=== PATIENT | female | born 1975 | race African-American/Black ===

== ENCOUNTER 2017-12-12 18:10 | Inpatient (IN) | payer SELFPAY ==
[~2017-12-12] VITALS: Ht 167.6 cm; Wt 120.2 kg
[~2017-12-12 18:10] MED LIST: ALBU05 INH
[2017-12-12 18:43] LABS: BASOPHILS % 1.4 % (0.0-2.0); EOSINOPHILS % 0.7 % (0.0-5.0); HEMATOCRIT. 41.8 % (36.0-48.0); HEMOGLOBIN. 13.3 g/dL (12.0-16.0); LYMPHOCYTES % 16.1 % (20.0-50.0); MEAN CORPUSCULAR HEMOGLOBIN 23.9 pg (28.0-32.0); MEAN PLATELET VOLUME 7.5 fl (7.4-10.4); MONOCYTES % 7.6 % (2.0-8.0); NEUTROPHILS % 74.2 % (40.0-76.0); PLATELET 311 x1000/uL (130-400); RED BLOOD CELL COUNT 5.58 mill/uL (4.2-5.4); RED CELL DISTRIBUTION WIDTH 16.9 % (11.6-14.6)
[2017-12-12 18:49] LABS: CHLORIDE 106 mEq/L (98-107)
[2017-12-12 19:06] LABS: CLARITY URINE CLOUDY (CLEAR); COLOR URINE YELLOW (YELLOW); KETONES URINE TRACE (NEGATIVE); LEUKOCYTE ESTERASE URINE NEGATIVE (NEGATIVE); NITRITE URINE NEGATIVE (NEGATIVE); OCCULT BLOOD URINE NEGATIVE (NEGATIVE); PROTEIN URINE 1+ (NEGATIVE); SPECIFIC GRAVITY URINE 1.018 (1.005-1.030)
[2017-12-12] MEDS ORDERED: ONDANSETRON HCL 4MG/2ML VIAL IV STA (19:08)
[2017-12-12] MEDS ORDERED: SODIUM CHLORIDE 0.9% 1,000 ML IV ONE (19:08)
[2017-12-12] MEDS ORDERED: FAMOTIDINE 20MG/2ML VIAL IV STA (19:08)
[2017-12-12] MEDS ORDERED: MORPHINE SULFATE 4 MG/ML CPJ (NOT FOR IM USE) IV STA (19:08)
[2017-12-12 19:43] LABS: HCG SCREEN NEGATIVE
[2017-12-12] MEDS ORDERED: IOHEXOL-300 100 ML BOTTLE ONE (22:06)
[2017-12-12] MEDS ORDERED: ONDANSETRON 4MG ODT PO ONE (23:30)
[2017-12-13] MEDS ORDERED: METOCLOPRAMIDE HCL 5MG TABLET PO ONE (00:15)
[2017-12-13] MEDS ORDERED: SODIUM CHLORIDE 0.9% 1,000 ML IV ONE (00:17)
[2017-12-13 04:00] VITALS: BP 134/90
[2017-12-13] MEDS ORDERED: CLONAZEPAM 0.5MG TABLET PO PRN (05:00)
[2017-12-13] MEDS ORDERED: HYDROCODONE/ACETAMINOPHEN 5/325MG TABLET PO PRN (05:00)
[2017-12-13] MEDS ORDERED: CLONIDINE 0.1MG TABLET PO PRN (05:00)
[2017-12-13] MEDS ORDERED: ONDANSETRON HCL 4MG/2ML VIAL IV PRN (05:00)
[2017-12-13] MEDS: DEXT 5%/0.45% NACL 1000ML 1,000 ML IV SCH (06:53)
[2017-12-13] MEDS: BACLOFEN 10MG TABLET PO SCH ×3 (07:35→21:26)
[2017-12-13 08:00] VITALS: BP 166/110
[2017-12-13] MEDS: FUROSEMIDE 20MG TABLET PO SCH (08:52)
[2017-12-13] MEDS: ASPIRIN 81MG TABLET PO SCH (08:52)
[2017-12-13] MEDS: PANTOPRAZOLE SODIUM 40 MG/VIAL IV SCH (08:52)
[2017-12-13] MEDS: AMLODIPINE 10MG TABLET PO SCH (08:52)
[2017-12-13] MEDS: CARVEDILOL 25MG TABLET PO SCH ×2 (08:52→21:27)
[2017-12-13] MEDS: HYDRALAZINE HCL 25MG TABLET PO SCH ×2 (09:37→21:27)
[2017-12-13 12:00] VITALS: BP 102/78
[2017-12-13] MEDS: LEVOFLOXACIN 500MG PREMIX 100 ML IV SCH (12:42)
[2017-12-13 13:06] LABS: BASOPHILS % 1.3 % (0.0-2.0); HEMOGLOBIN. 12.3 g/dL (12.0-16.0); MEAN CORPUSCULAR HEMOGLOBIN 23.8 pg (28.0-32.0); MEAN CORPUSCULAR VOLUME 75.2 fL (81.0-99.0); MEAN PLATELET VOLUME 7.7 fl (7.4-10.4); MONOCYTES % 8.5 % (2.0-8.0); NEUTROPHILS % 70.2 % (40.0-76.0); PLATELET 291 x1000/uL (130-400); RED BLOOD CELL COUNT 5.19 mill/uL (4.2-5.4); RED CELL DISTRIBUTION WIDTH 16.8 % (11.6-14.6)
[2017-12-13 13:19] LABS: CHLORIDE 104 mEq/L (98-107)
[2017-12-13 16:00] VITALS: BP 117/69
[2017-12-13 20:00] VITALS: BP 146/86
[2017-12-14] VITALS: BP 98/58
[2017-12-14 04:00] VITALS: BP 135/80
[2017-12-14] MEDS: BACLOFEN 10MG TABLET PO SCH (05:24)
[2017-12-14] MEDS: PANTOPRAZOLE SODIUM 40 MG/VIAL IV SCH (08:31)
[2017-12-14] MEDS: DEXT 5%/0.45% NACL 1000ML 1,000 ML IV SCH ×2 (08:31→08:44)
[2017-12-14] MEDS: CARVEDILOL 25MG TABLET PO SCH (08:32)
[2017-12-14] MEDS: FUROSEMIDE 20MG TABLET PO SCH (08:32)
[2017-12-14] MEDS: HYDRALAZINE HCL 25MG TABLET PO SCH (08:32)
[2017-12-14] MEDS: AMLODIPINE 10MG TABLET PO SCH (08:32)
[2017-12-14] MEDS: ASPIRIN 81MG TABLET PO SCH (08:32)
[2017-12-14 08:53] VITALS: BP 122/74
[2017-12-14] MEDS: LEVOFLOXACIN 500MG PREMIX 100 ML IV SCH (12:25)
[2017-12-14 13:13] VITALS: BP 108/67
[2017-12-14 13:36] VITALS: BP 108/67
[2017-12-14] MEDS ORDERED: NITR-87 MT ×2 (13:51→13:56)
[2017-12-14] MEDS ORDERED: ATORVASTATIN CALCIUM 10MG TABLET PO SCH (21:00)
== END 2017-12-14 14:50 | disposition home or self-care (01) | DRG 463 ==
LOC: ER 18:10 → 8WST 12-13 00:34 → ENRESERV 12-13 01:51
PROVIDERS: ADMIT Hospitalist; ATTEND Hospitalist
DX: N39.0 Urinary tract infection, site not specified (principal); I69.354 Hemiplegia and hemiparesis following cerebral infarction affecting left non-dominant side; I10 Essential (primary) hypertension; D25.9 Leiomyoma of uterus, unspecified; F41.9 Anxiety disorder, unspecified; F12.90 Cannabis use, unspecified, uncomplicated; J45.909 Unspecified asthma, uncomplicated; K59.00 Constipation, unspecified; Z82.49 Family history of ischemic heart disease and other diseases of the circulatory system; Z98.891 History of uterine scar from previous surgery; Z90.79 Acquired absence of other genital organ(s); Z88.0 Allergy status to penicillin; Z88.8 Allergy status to other drugs, medicaments and biological substances
CPT/HCPCS: 36415; 71045; 74018; 74177; 76830; 76856; 80048; 80053; 81003; 83605; 83690; 84703; 85025; 93005; C1893; C9113; J1956; J2270; J2405; J3490; J7030; J8597; Q0162; Q9967